=== PATIENT | male | born 1940 | race Caucasian/White ===

== ENCOUNTER → 2020-10-25 10:15 | Outpatient (CLI) | payer MEDICARE, SELFPAY ==
--- NOTE | 2020-10-25 10:21 | CT_ITS ---
PROCEDURE: CT CHEST WO/W CON CLINCAL INDICATION: Myasthenia Gravis COMPARISON: No exams were available for comparison TECHNIQUE: IV Contrast: 75ml Isovue 370 Axial images obtained with sagittal and coronal reformats. All CT scans at the facility use one or more dose reduction, viz: automated exposure control, ma/kV adjustment per patient size (including targeted exams where dose is matched to indication, i.e. head), or iterative reconstruction technique. FINDINGS: HEART AND MEDIASTINAL STRUCTURES: No mediastinal mass apparent. No evidence of thymoma. Severe coronary artery calcification is noted. Mitral valve annular calcification also present. LUNGS AND PLEURAL SPACES: There is mild biapical scarring. There is evidence of old granulomatous disease. A 3 mm noncalcified nodule is present in the right middle lobe laterally and in the right middle lobe anteriorly. No suspicious nodules. No effusions or infiltrates. BONY STRUCTURES: No acute bony abnormalities apparent. UPPER ABDOMEN: Large hiatal hernia is present. Fatty liver ADDITIONAL FINDINGS: No other significant abnormalities. IMPRESSION: No mediastinal mass or thymoma apparent in this patient with reported myasthenia gravis Severe coronary artery calcifications Large hiatal hernia Dictated by: Veto Buckley MD 10/26/2020 12:42 Veto Buckley MD in [place] 10/26/2020 12:42
== END ==
PROVIDERS: PCP Specialist; Visit Provider Specialist
DX: G47.33 Obstructive sleep apnea (adult) (pediatric) (principal); G70.00 Myasthenia gravis without (acute) exacerbation
CPT/HCPCS: 71270; Q9967

== ENCOUNTER → 2020-11-22 14:59 | Outpatient (CLI) | payer MEDICARE, SELFPAY ==
[2020-11-22 13:35] VITALS: PULSE 51; PULSE 55
== END ==
PROVIDERS: PCP Family Medicine; Visit Provider Specialist
DX: G70.00 Myasthenia gravis without (acute) exacerbation (principal)
CPT/HCPCS: 94060; 94640; 94727; 94729; 94762